=== PATIENT | male | born 1995 | race African-American/Black ===

== ENCOUNTER 2019-07-12 18:19 | Emergency (ER) | payer OTHER ==
[~2019-07-12] VITALS: Ht 185.4 cm; Wt 86.2 kg
[2019-07-12 19:12] VITALS: BP 125/75
== END 2019-07-12 19:13 | disposition home or self-care (01) ==
LOC: M.ERS 18:19
DX: S61.211A Laceration without foreign body of left index finger without damage to nail, initial encounter (principal); W26.0XXA Contact with knife, initial encounter; Y93.89 Activity, other specified; Y92.89 Other specified places as the place of occurrence of the external cause; Y99.8 Other external cause status